=== PATIENT | male | born 1955 | race Caucasian/White ===

== ENCOUNTER 2019-03-10 00:08 | Inpatient (IN) | payer OTHER ==
[2019-03-10] MEDS ORDERED: NA PHOSPHATE/BIPHOS 133 ML ENEMA PR (01:00)
[2019-03-10] MEDS ORDERED: ONDANSETRON 4 MG INJ IV ×2 (01:00→15:00)
[2019-03-10] MEDS ORDERED: HYDROCODONE/APAP (5/325) TAB PO ×2 (01:00→15:00)
[2019-03-10] MEDS ORDERED: NACL 0.9% 3 ML SYG IV (01:00)
[2019-03-10] MEDS ORDERED: morphine 2 MG INJ IV ×3 (01:00→15:00)
[2019-03-10] MEDS ORDERED: DOCUSATE SODIUM 100 MG CAP PO (01:00)
[2019-03-10] MEDS ORDERED: ZOLPIDEM 5 MG TAB PO (01:00)
[2019-03-10] MEDS ORDERED: ACETAMINOPHEN 325 MG TAB PO (01:00)
[2019-03-10] MEDS: DEXTROSE 5%-0.45% NACL 1,000 ML IV (01:26)
[2019-03-10] MEDS: HYDROmorphONE 1 MG/ML SYG IV ×3 (01:27→23:06)
[2019-03-10 05:23] LABS: ADD MAN DIFF? NO
[2019-03-10 05:35] LABS: BASOPHILS % 0.3 % (0.0-2.0); EOSINOPHILS # 0.1 10^3/ul (0.0-0.5); EOSINOPHILS % 1.5 % (0.0-7.0); HEMOGLOBIN 11.8 g/dl (14.0-18.0); LYMPHOCYTES # 2.1 10^3/ul (0.8-2.9); LYMPHOCYTES % 23.2 % (15.0-51.0); MEAN CORPUSCULAR HGB CONC 34.7 g/dl (32.0-37.0); MEAN CORPUSCULAR VOLUME 89.2 fl (82.0-101.0); MEAN PLATELET VOLUME 12.2 fl (7.4-10.4); MONOCYTE # 0.9 10^3/ul (0.3-0.9); MONOCYTES % 9.6 % (0.0-11.0); NEUTROPHIL # 5.8 10^3/ul (1.6-7.5); NEUTROPHILS % 65.1 % (39.0-77.0); PLATELET COUNT 152 10^3/UL (140-415); RED BLOOD COUNT 3.81 10^6/ul (4.70-6.10); RED CELL DISTRIBUTION WIDTH 13.5 % (11.5-14.5)
[2019-03-10 06:29] LABS: ALANINE AMINOTRANSFERASE 37 IU/L (13-69); ALBUMIN 3.9 g/dl (3.3-4.9); ALBUMIN/GLOBULIN RATIO 1.25; ALKALINE PHOSPHATASE 50 IU/L (42-121); ANION GAP 7 (5-13); ASPARTATE AMINO TRANSFERASE 42 IU/L (15-46); BLOOD UREA NITROGEN 10 mg/dl (7-20); CALCIUM 9.1 mg/dl (8.4-10.2); CARBON DIOXIDE 29 mmol/L (21-31); CHLORIDE 101 mmol/L (97-110); CREATININE 0.75 mg/dl (0.61-1.24); Estimated GFR > 60 mL/min (>60); GLUCOSE 133 mg/dl (70-220); POTASSIUM 3.9 mmol/L (3.5-5.1); SODIUM 137 mmol/L (135-144)
[2019-03-10 06:40] LABS: INR 1.04; PROTIME 13.7 Sec (11.9-14.9); PT RATIO 1.1
[2019-03-10 06:41] LABS: PARTIAL THROMBOPLASTIN TIME 35.4 Sec (23.0-35.0)
[2019-03-10] MEDS: FAMOTIDINE 20 MG INJ IV ×2 (08:36→20:45)
[2019-03-10] MEDS: BENAZEPRIL 40 MG TAB PO (08:36)
[2019-03-10] MEDS: AMLODIPINE 5 MG TAB PO (08:36)
[2019-03-10] MEDS ORDERED: MIDAZOLAM 1 MG/ML 2 ML INJ (11:07)
[2019-03-10] MEDS ORDERED: BUPIVACAINE 0.5% (SDV) 30 ML INJ (11:20)
[2019-03-10] MEDS ORDERED: ROPIVACAINE 0.5 % 30 ML VIAL (11:20)
[2019-03-10] MEDS: POLYMYXIN/BACITRACIN 1L IRRIG (12:54)
[2019-03-10] MEDS ORDERED: PROPOFOL 20 ML (14:01)
[2019-03-10] MEDS ORDERED: ONDANSETRON 4 MG INJ (14:01)
[2019-03-10] MEDS ORDERED: ROCURONIUM 50 MG INJ (14:01)
[2019-03-10] MEDS ORDERED: LIDOCAINE 2% (SDV) 5 ML INJ (14:01)
[2019-03-10] MEDS ORDERED: CEFAZOLIN 1 GM INJ (14:01)
[2019-03-10] MEDS ORDERED: ETOMIDATE 20 MG INJ (14:01)
[2019-03-10] MEDS ORDERED: morphine 4 MG/ML VIAL IV (15:00)
[2019-03-10] MEDS ORDERED: MEPERIDINE 25 MG INJ IV (15:00)
[2019-03-10] MEDS ORDERED: NALOXONE (0.4 MG/ML) INJ IV (15:00)
[2019-03-10] MEDS ORDERED: DIPHENHYDRAMINE 50 MG INJ IV (15:00)
[2019-03-10] MEDS ORDERED: METOCLOPRAMIDE 10 MG INJ IV (15:00)
[2019-03-10] MEDS ORDERED: FENTAnyl 50 MCG/ML VIAL IV (15:00)
[2019-03-10] MEDS ORDERED: hydrALAzine 20 MG INJ IV (15:00)
[2019-03-10] MEDS: D5W-0.45 NACL + KCL 20 MEQ 1,000 ML IV (16:50)
[2019-03-10] MEDS: ATORVASTATIN 80 MG TAB PO (20:45)
[2019-03-10] MEDS ORDERED: ATORVASTATIN 20 MG TAB PO (21:00)
[2019-03-11] MEDS: hydrALAzine 20 MG INJ IV (00:06)
[2019-03-11] MEDS: HYDROmorphONE 1 MG/ML SYG IV ×2 (03:53→09:39)
[2019-03-11] MEDS: D5W-0.45 NACL + KCL 20 MEQ 1,000 ML IV (06:22)
[2019-03-11] MEDS: BENAZEPRIL 40 MG TAB PO (08:35)
[2019-03-11] MEDS: FAMOTIDINE 20 MG INJ IV (08:35)
[2019-03-11] MEDS: CLOPIDOGREL 75 MG TAB PO (08:36)
[2019-03-11] MEDS: AMLODIPINE 5 MG TAB PO (08:36)
[2019-03-11] MEDS: ALLOPURINOL 100 MG TAB PO (08:36)
[2019-03-11] MEDS: HYDROCODONE/APAP (5/325) TAB PO (08:37)
[2019-03-11] MEDS ORDERED: BENAZEPRIL 40 MG TAB PO (09:00)
[2019-03-11] MEDS: HYDROCODONE/APAP (10/325) TAB PO ×2 (12:12→15:57)
[2019-03-11] MEDS: ATORVASTATIN 80 MG TAB PO (21:04)
[2019-03-11] MEDS: FAMOTIDINE 20 MG TAB PO (21:04)
[2019-03-12] MEDS: HYDROCODONE/APAP (10/325) TAB PO ×4 (03:58→20:08)
[2019-03-12 05:02] LABS: ADD MAN DIFF? NO
[2019-03-12 05:06] LABS: WHITE BLOOD COUNT 8.4 10^3/ul (4.8-10.8)
[2019-03-12 05:06] LABS: BASOPHILS % 0.4 % (0.0-2.0); EOSINOPHILS # 0.2 10^3/ul (0.0-0.5); EOSINOPHILS % 2.6 % (0.0-7.0); HEMATOCRIT 31.6 % (42.0-52.0); HEMOGLOBIN 10.5 g/dl (14.0-18.0); LYMPHOCYTES # 1.6 10^3/ul (0.8-2.9); LYMPHOCYTES % 19.1 % (15.0-51.0); MEAN CORPUSCULAR HEMOGLOBIN 30.1 pg (29.0-33.0); MEAN CORPUSCULAR HGB CONC 33.2 g/dl (32.0-37.0); MEAN CORPUSCULAR VOLUME 90.5 fl (82.0-101.0); MEAN PLATELET VOLUME 11.6 fl (7.4-10.4); MONOCYTE # 0.9 10^3/ul (0.3-0.9); MONOCYTES % 10.3 % (0.0-11.0); NEUTROPHIL # 5.7 10^3/ul (1.6-7.5); NEUTROPHILS % 67.4 % (39.0-77.0); PLATELET COUNT 164 10^3/UL (140-415); RED BLOOD COUNT 3.49 10^6/ul (4.70-6.10); RED CELL DISTRIBUTION WIDTH 13.5 % (11.5-14.5)
[2019-03-12 05:28] LABS: INR 1.21; PROTIME 15.4 Sec (11.9-14.9); PT RATIO 1.2
[2019-03-12 05:29] LABS: PARTIAL THROMBOPLASTIN TIME 37.7 Sec (23.0-35.0)
[2019-03-12 05:43] LABS: ALANINE AMINOTRANSFERASE 85 IU/L (13-69); ALBUMIN 3.6 g/dl (3.3-4.9); ALBUMIN/GLOBULIN RATIO 1.09; ALKALINE PHOSPHATASE 81 IU/L (42-121); ANION GAP 6 (5-13); ASPARTATE AMINO TRANSFERASE 95 IU/L (15-46); BILIRUBIN,INDIRECT 1.3 mg/dl (0-1.1); BILIRUBIN,TOTAL 1.3 mg/dl (0.2-1.3); BLOOD UREA NITROGEN 12 mg/dl (7-20); CALCIUM 8.9 mg/dl (8.4-10.2); CARBON DIOXIDE 30 mmol/L (21-31); CHLORIDE 100 mmol/L (97-110); CREATININE 0.86 mg/dl (0.61-1.24); Estimated GFR > 60 mL/min (>60); GLUCOSE 125 mg/dl (70-220); POTASSIUM 4.2 mmol/L (3.5-5.1); SODIUM 136 mmol/L (135-144); TOTAL PROTEIN 6.9 g/dl (6.1-8.1)
[2019-03-12] MEDS: ALLOPURINOL 100 MG TAB PO (08:28)
[2019-03-12] MEDS: CLOPIDOGREL 75 MG TAB PO (08:28)
[2019-03-12] MEDS: FAMOTIDINE 20 MG TAB PO ×2 (08:29→20:07)
[2019-03-12] MEDS: AMLODIPINE 5 MG TAB PO (08:31)
[2019-03-12] MEDS: BENAZEPRIL 40 MG TAB PO (08:31)
[2019-03-12] MEDS: ENOXAPARIN 40 MG/0.4 ML SYG SC (08:33)
[2019-03-12] MEDS: ATORVASTATIN 80 MG TAB PO (20:07)
[2019-03-13] MEDS: HYDROCODONE/APAP (10/325) TAB PO ×3 (04:46→20:08)
[2019-03-13] MEDS: FAMOTIDINE 20 MG TAB PO ×2 (08:49→20:08)
[2019-03-13] MEDS: BENAZEPRIL 40 MG TAB PO (08:49)
[2019-03-13] MEDS: AMLODIPINE 5 MG TAB PO (08:50)
[2019-03-13] MEDS: CLOPIDOGREL 75 MG TAB PO (08:50)
[2019-03-13] MEDS: ALLOPURINOL 100 MG TAB PO (08:50)
[2019-03-13] MEDS: BISACODYL (EC) 5 MG TAB PO (10:50)
[2019-03-13] MEDS: ENOXAPARIN 40 MG/0.4 ML SYG SC (10:51)
[2019-03-13] MEDS: ATORVASTATIN 80 MG TAB PO (20:08)
[2019-03-13] MEDS: MAGNESIUM HYDROXIDE 30ML CUP PO (20:11)
== END 2019-03-13 21:20 | disposition home or self-care (01) | DRG 494 ==
LOC: MS1 00:08
PROC: 0QSG06Z Reposition Right Tibia with Intramedullary Internal Fixation Device, Open Approach (ICD-10-PCS; principal; 2019-03-10 11:06)
DX: S82.251A Displaced comminuted fracture of shaft of right tibia, initial encounter for closed fracture (principal); S82.451A Displaced comminuted fracture of shaft of right fibula, initial encounter for closed fracture; I10 Essential (primary) hypertension; E78.5 Hyperlipidemia, unspecified; L40.9 Psoriasis, unspecified; W19.XXXA Unspecified fall, initial encounter
CPT/HCPCS: 71045; 73590; 80053; 85025; 85610; 85730; 93005; 97116; 97162; 97530